=== PATIENT | female | born 1990 | race Caucasian/White ===

== ENCOUNTER 2016-11-22 14:56 | Emergency (ER) | payer OTHER ==
[2016-11-22 15:20] VITALS: BP 133/95; PULSE 84; RESP 18; TEMP 97.8
--- NOTE | 2016-11-22 15:31 | ED ---
Wound/Laceration HPI - General Chief Complaint: Wound/Laceration Stated Complaint: [facility] Time Seen by Provider: 11/22/16 15:13 Source: patient, RN notes reviewed Mode of arrival: ambulatory Limitations: no limitations - History of Present Illness Initial Comments: 26-year-old female presents emergency Department with a chief complaint of right hand injury. Patient was cleaning up a bloody area after a tooth extraction and cut her hand on piece of plastic. Patient states she is up-to- date on her tetanus as well as her hepatitis vaccinations. Patient denies any pain. Patient states she's early wash the wound after it happened.Patient denies any recent fever, chills, shortness of breath, chest pain, back pain, abdominal pain, nausea vomiting, numbness or tingling, dysuria or hematuria, constipation or diarrhea, headaches or visual changes, or any other current symptoms. - Related Data Allergies Allergy/AdvReac Type Severity Reaction Status Date / Time No Known Allergies Allergy Verified 11/22/16 15:17 Review of Systems ROS Statement: Those systems with pertinent positive or pertinent negative responses have been documented in the HPI. ROS Other: All systems not noted in ROS Statement are negative. Past Medical History Past Medical History: No Reported History History of Any Multi-Drug Resistant Organisms: None Reported Past Surgical History: Adenoidectomy, Tonsillectomy Past Psychological History: No Psychological Hx Reported Smoking Status: Never smoker Past Alcohol Use History: None Reported Past Drug Use History: None Reported General Exam - General Exam Comments Initial Comments: General: The patient is awake and alert, in no distress, and does not appear acutely ill. Neck: The neck is supple, there is no tenderness. Cardiovascular: There is a regular rate and rhythm. No murmur, rub or gallop is appreciated. Respiratory: Lungs are clear to auscultation, respirations are non-labored, breath sounds are equal. No wheezes, stridor, rales, or rhonchi. Musculoskeletal: Sensation intact with 2+ pulses throughout Patient does appear to have a small puncture wound to the base of the fourth and fifth digits. No drainage from the area. Full range of motion. Neurological: CN II-XII intact, There are no obvious motor or sensory deficits. Coordination appears grossly intact. Speech is normal. Skin: Skin is warm and dry and no rashes or lesions are noted. Psychiatric: Normal mood and affect. Limitations: no limitations Course Vital Signs 11/22/16 15:17 Temperature 97.8 F Pulse Rate 84 Respiratory 18 Rate Blood Pressure 133/95 O2 Sat by Pulse 99 Oximetry Medical Decision Making - Medical Decision Making 26-year-old female presents for right hand puncture wound. At this time patient does have the source and she will contact them and they will follow up here and/or another facility to have the sources foot were drawn. At this time we will not wait for the HIV results. We discussed needs follow-up on this. This time we discussed continued follow-up for additional blood work throughout the process. We discussed return parameters. We discussed all the patient's questions. She stated that she understood and is in agreement with plan. This time she'll be discharged home. Disposition Clinical Impression: Exposure to blood, Puncture wound of right hand Disposition: HOME SELF-CARE Condition: Stable Instructions: Needle Stick Injuries (ED) Additional Instructions: Please use medication as discussed. Please follow up with family doctor if symptoms have not improved over the next two days. Please return to the emergency room if your symptoms increase or worsen or for any other concerns. Referrals: Saúl Kohli III, MD [Primary Care Provider] - 1-2 days Time of Disposition: 15:30
[2016-11-22 17:14] LABS: Hepatitis C Virus IgG Index 0.02
[2016-11-22 17:33] LABS: Hepatitis B Surface Antibody POSITIVE (Negative); Hepatitis C Virus IgG Ab Negative (Negative)
[2016-11-23 07:38] LABS: HIV-1/HIV-2 Ab Screen NONREAC (NON REAC)
== END 2016-11-22 15:54 | disposition home or self-care (01) ==
LOC: EC 14:56 → MERGE 14:56 → EC 15:54
DX: S61.431A Puncture wound without foreign body of right hand, initial encounter (principal); W45.8XXA Other foreign body or object entering through skin, initial encounter
CPT/HCPCS: 36415; 86706; 86803; 87389; 99283

== ENCOUNTER 2021-09-08 14:40 | Inpatient (IN) | payer BC ==
[2021-09-08 15:22] LABS: Appearance,Urine Clear (Clear); Bacteria,Urine Occasional /hpf; Bilirubin,Urine Negative (Negative); Blood,Urine Moderate (Negative); Color,Urine Light Yellow; Glucose,Urine (UA) Negative (Negative); Ketones,Urine Negative (Negative); Leukocyte Esterase,Urine Negative (Negative); Nitrite,Urine Negative (Negative); PH, Urine 6.5 (5.0-8.0); Protein,Urine Negative (Negative); RBC,Urine <1 /hpf (0-5); Specific Gravity,Urine 1.006 (1.001-1.035); Squamous Epithelial Cell,Urine <1 /hpf (0-4); Urobilinogen,Urine <2.0 mg/dL (<2.0); WBC,Urine 1 /hpf (0-5)
[2021-09-08 15:28] LABS: Creatinine,Urine Random 49.8 mg/dL; Creatinine,Urine Random 50.7 mg/dL; Protein/Creatinine Ratio,Urine 0.321
[2021-09-08 15:37] LABS: Basophils % (A) 0 %; Eosinophils # (A) 0.1 k/uL (0-0.7); Eosinophils % (A) 1 %; HCT 39.5 % (34.0-46.0); HGB 13.8 gm/dL (11.4-16.0); Lymphocytes # (A) 2.3 k/uL (1.0-4.8); Lymphocytes % (A) 19 %; MCH 32.9 pg (25.0-35.0); MCHC 34.8 g/dL (31.0-37.0); MCV 94.6 fL (80.0-100.0); Mean Platelet Volume 7.5; Monocytes # (A) 0.6 k/uL (0-1.0); Monocytes % (A) 5 %; Neutrophils # (A) 8.9 k/uL (1.3-7.7); Neutrophils % (A) 73 %; Platelet Count 349 k/uL (150-450); RBC 4.18 m/uL (3.80-5.40); RDW 13.2 % (11.5-15.5); WBC 12.2 k/uL (3.8-10.6)
[2021-09-08 15:45] LABS: INR 0.9 (<1.2); Partial Thromboplastin Time 24.1 sec (22.0-30.0); Prothrombin Time 9.7 sec (9.0-12.0)
[2021-09-08 15:46] LABS: ALT 15 U/L (4-34); AST 28 U/L (14-36); African American GFR (CKD) >90 (>60 ml/min/1.73 sqM); Blood Urea Nitrogen 7 mg/dL (7-17); LDH 517 U/L (313-618); Non-African American GFR(CKD) >90 (>60 ml/min/1.73 sqM); Uric Acid 2.8 mg/dL (3.7-7.4)
[2021-09-08] MEDS ORDERED: LABETALOL 100 MG TAB PO STA (15:57)
--- NOTE | 2021-09-08 17:23 | P.HPOB ---
History of Present Illness H&P Date: 09/08/21 Chief Complaint: 38-3/7 weeks, -induced hypertension The patient is a 31-year-old 1 para 0 admitted at 38-3/7 weeks as established by last menstrual period and confirmed by 8 week ultrasound. She is admitted with elevated blood pressures both at home and in the office today. She denies any secondary symptoms but was followed blood pressures in the range of 150 over 100s. As a result, she was sent to the hospital for laboratory workup for preeclampsia which has been entirely negative. She does continue to have relatively labile blood pressures on the floor. Given her gestational age of 38-3/7 weeks with a favorable cervix, we have opted to admit her on for overnight observation and management of blood pressures using oral labetalol and begin the process of induction tomorrow morning. Her has otherwise been uncomplicated though she did have Covid in April and has had reassuring testing weekly since 32 weeks. She additionally is known to be group B strep positive. Obstetrical history: 1 para 0 with current statistics listed in history of present illness. EDC of 09/19/2021 was established by last menstrual period and confirmed by 8 week ultrasound. Laboratory workup demonstrates a blood type of A+ with a negative antibody screen. Rubella status is immune. The remainder of the laboratory workup was within normal limits. One hour Glucola was normal and group B strep status is positive. Gynecologic history: Unremarkable with no history of any infections to include STDs. Review of Systems Review of systems is confined to history of present illness. Past Medical History Past Medical History: No Reported History History of Any Multi-Drug Resistant Organisms: None Reported Past Surgical History: Adenoidectomy, Orthopedic Surgery, Tonsillectomy Additional Past Surgical History / Comment(s): eye surgery, lasic Past Anesthesia/Blood Transfusion Reactions: No Reported Reaction Past Psychological History: No Psychological Hx Reported Smoking Status: Never smoker Past Alcohol Use History: None Reported Past Drug Use History: None Reported - Past Family History Father Family Medical History: Cancer, Thyroid Disorder Additional Family Medical History / Comment(s): thyroid cancer, DVT's Medications and Allergies Home Medications Medication Instructions Recorded Confirmed Type Aspirin [Children's Aspirin] 81 mg PO DAILY 09/08/21 09/08/21 History Pnv No.95/Ferrous Fum/Folic AC 1 tab PO DAILY 09/08/21 09/08/21 History [ Multivitamin Tablet] Allergies Allergy/AdvReac Type Severity Reaction Status Date / Time No Known Allergies Allergy Verified 09/08/21 14:58 Exam Vital Signs Temp Pulse Resp BP Pulse Ox 09/08/21 16:19 97.9 F 103 H 18 134/96 97 09/08/21 15:44 97.9 F 103 H 17 134/96 Intake and Output 09/08/21 09/08/21 09/08/21 06:59 14:59 22:59 Other: Weight 94.801 kg 94.801 kg In general, this is a well-developed, well-nourished white female in no acute distress. Her heart has a regular rhythm and rate without murmur. Her lungs clear to auscultation bilaterally in all patel. Her abdomen is gravid, nondistended, has normal active bowel sounds, soft, nontender, and without any palpable masses aside from uterine fundus. Her extremities are without any cyanosis, clubbing, or significant edema and are nontender to palpation bilaterally. Digital cervical examination demonstrated surgery approximate 3 cm dilated, 60% effaced, the vertex in presentation at -2 station. Results Result Diagrams: 09/08/21 15:34 09/08/21 15:34 Abnormal Lab Results - Last 24 Hours (Table) 09/08/21 09/08/21 09/08/21 Range/Units 15:03 15:03 15:34 WBC (3.8-10.6) k/uL Neutrophils # (1.3-7.7) k/uL Creatinine 0.40 L (0.52-1.04) mg/dL Uric Acid 2.8 L (3.7-7.4) mg/dL Urine Blood Moderate H (Negative) Urine Bacteria Occasional H (None) /hpf U Random Total Protein 15 H (<12) mg/dL 09/08/21 Range/Units 15:34 WBC 12.2 H (3.8-10.6) k/uL Neutrophils # 8.9 H (1.3-7.7) k/uL Creatinine (0.52-1.04) mg/dL Uric Acid (3.7-7.4) mg/dL Urine Blood (Negative) Urine Bacteria (None) /hpf U Random Total Protein (<12) mg/dL Assessment and Plan (1) Term Current Visit: Yes Status: Acute Code(s): Z34.90 - ENCNTR FOR SUPRVSN OF NORMAL , UNSP, UNSP TRIMESTER SNOMED Code(s): 53806255 (2) induced hypertension Current Visit: Yes Status: Acute Code(s): O13.9 - GESTATIONAL HTN W/O SIGNIFICANT PROTEINURIA, UNSP TRIMESTER SNOMED Code(s): 80734421 Plan: The patient has been admitted for overnight observation and management of blood pressures using labetalol 100 mg. She received a dose approximately 1 hour ago and will be followed closely with blood pressures for need for another dose tonight before she goes to bed. The intention would be to proceed with Pitocin induction starting tomorrow morning at 6 AM and 2 shortly after follow with artificial rupture of membranes. She will obviously have close maternal and surveillance and expectant management will be practiced. She is a good candidate for either IV or epidural analgesia. Laboratory workup for preeclampsia has been entirely negative.
[2021-09-08] MEDS ORDERED: LABETALOL 100 MG TAB PO ONE (20:33)
[2021-09-09] MEDS ORDERED: PENICILLIN G POTASSIUM 5,000,000 UNIT in DEXTROSE 5% IN WATER 100 ML IVPB STA ×2 (04:42)
[2021-09-09] MEDS ORDERED: LIDOCAINE 0.5% (PF) 5 MG/ML (50 ML SDV) SQ PRN (04:42)
[2021-09-09] MEDS ORDERED: METHYLERGONOVINE 0.2 MG/ML 1 ML AMP IM PRN (04:42)
[2021-09-09] MEDS ORDERED: OXYTOCIN 10 UNIT/ML 1 ML VIAL IM PRN (04:42)
[2021-09-09] MEDS ORDERED: CARBOPROST TROMETHAMINE 250 MCG/ML 1 ML AMP IM PRN (04:42)
[2021-09-09] MEDS ORDERED: TERBUTALINE 1 MG/ML VIAL SQ PRN (04:42)
[2021-09-09] MEDS ORDERED: OXYTOCIN 30 UNITS/500 ML NS 30 UNIT in SALINE 1 500ML.BAG IV SCH ×2 (04:45→12:15)
[2021-09-09] MEDS: LACTATED RINGERS 1,000 ML IV SCH ×2 (05:40→12:49)
[2021-09-09] MEDS ORDERED: LABETALOL 100 MG TAB PO ONE (08:15)
[2021-09-09] MEDS ORDERED: BUTORPHANOL 1 MG/ML 1 ML VIAL IV PRN (08:36)
--- NOTE | 2021-09-09 08:39 | P.PN ---
Subjective Progress Note Date: 09/09/21 Principal diagnosis: 38-4/7 weeks, -induced hypertension, induction The patient had blood pressures in the 130s over 90 range overnight but, this morning has had increased blood pressures. She denies any symptoms to include headaches, scotomata, or any other concerning features for preeclampsia was severe features. Objective - Vital Signs Vital signs: Vital Signs Temp 96.5 F L 09/09/21 04:00 Pulse 89 09/09/21 04:00 Resp 16 09/09/21 04:00 BP 136/89 09/09/21 04:00 Pulse Ox 97 09/09/21 04:00 Intake & Output 09/08/21 09/09/21 09/09/21 18:59 06:59 18:59 Weight 94.801 kg Other: # Voids 1 - Exam In general, this is a well-developed, well-nourished white female in no acute distress. Exam this morning is confined to digital cervical examination which demonstrates her cervix to be approximately 3 cm dilated, 60% effaced, with the vertex in presentation at -2 station. Artificial rupture of membranes is carried out demonstrating clear fluid. - Labs CBC & Chem 7: 09/08/21 15:34 09/08/21 15:34 Labs: Abnormal Lab Results - Last 24 Hours (Table) 09/08/21 09/08/21 09/08/21 Range/Units 15:03 15:03 15:34 WBC (3.8-10.6) k/uL Neutrophils # (1.3-7.7) k/uL Creatinine 0.40 L (0.52-1.04) mg/dL Uric Acid 2.8 L (3.7-7.4) mg/dL Urine Blood Moderate H (Negative) Urine Bacteria Occasional H (None) /hpf U Random Total Protein 15 H (<12) mg/dL 09/08/21 Range/Units 15:34 WBC 12.2 H (3.8-10.6) k/uL Neutrophils # 8.9 H (1.3-7.7) k/uL Creatinine (0.52-1.04) mg/dL Uric Acid (3.7-7.4) mg/dL Urine Blood (Negative) Urine Bacteria (None) /hpf U Random Total Protein (<12) mg/dL Assessment and Plan (1) Term Current Visit: Yes Status: Acute Code(s): Z34.90 - ENCNTR FOR SUPRVSN OF NORMAL , UNSP, UNSP TRIMESTER SNOMED Code(s): 39491708 (2) induced hypertension Current Visit: Yes Status: Acute Code(s): O13.9 - GESTATIONAL HTN W/O SIGNIFICANT PROTEINURIA, UNSP TRIMESTER SNOMED Code(s): 73802019 Plan: Pitocin has been started and she has undergone artificial rupture of membranes. She will have close maternal and surveillance and expectant management will be practiced. She did require another dose of oral labetalol this morning, 100 mg. We will keep a close watch on ongoing blood pressures and treat as needed, more likely with IV labetalol should it become necessary during labor process. She is a good candidate for either IV or epidural analgesia and I've discussed with her that epidural analgesia may help to improve her blood pressure profile as well.
[2021-09-09] MEDS ORDERED: ROPIVACAINE 5MG/ML 20ML VIAL ONE (10:11)
[2021-09-09] MEDS ORDERED: fentaNYL (PF) 50 MCG/ML 5 ML AMP ONE (10:11)
[2021-09-09] MEDS ORDERED: SODIUM CHLORIDE 0.9% 100 ML BAG ONE (10:11)
[2021-09-09] MEDS: PENICILLIN G POTASSIUM 2,500,000 UNIT in DEXTROSE 5% IN WATER 100 ML IVPB SCH ×4 (10:49→12:36)
[2021-09-09] MEDS ORDERED: SIMETHICONE 80 MG CHEWABLE PO PRN (12:01)
[2021-09-09] MEDS ORDERED: ACETAMINOPHEN TAB 325 MG TAB PO PRN (12:01)
[2021-09-09] MEDS ORDERED: HYDROcodone/APAP 5-325MG 1 EACH TAB PO PRN (12:01)
[2021-09-09] MEDS ORDERED: BENZOCAINE/MENTHOL SPRAY 1 GM/SPRAY AEROSOL TOPICAL PRN (12:01)
[2021-09-09] MEDS ORDERED: diphenhydrAMINE 50 MG/ML 1 ML VIAL IVP PRN ×2 (12:01)
[2021-09-09] MEDS ORDERED: HYDROCORTISONE 2.5% RECTAL CREAM 30 GM TUBE RECTAL PRN (12:01)
[2021-09-09] MEDS ORDERED: diphenhydrAMINE 25 MG CAP PO PRN (12:01)
[2021-09-09] MEDS ORDERED: diphenhydrAMINE 50 MG CAP PO PRN (12:01)
[2021-09-09] MEDS ORDERED: LANOLIN CREAM 5 GM TUBE TOPICAL PRN (12:01)
[2021-09-09] MEDS ORDERED: HYDROcodone/APAP 7.5-325MG 1 EACH TAB PO PRN (12:01)
[2021-09-09] MEDS ORDERED: ZOLPIDEM 5 MG TAB PO PRN (12:01)
[2021-09-09] MEDS ORDERED: IBUPROFEN 600 MG TAB PO PRN (12:01)
--- NOTE | 2021-09-09 12:05 | P.PROBDLV ---
Vaginal Delivery Note - . Vaginal Delivery Note: The patient is a 31-year-old 1 para 0 admitted at 38-3/7 weeks for workup for preeclampsia having had significant elevated blood pressures in the office and at home. She otherwise was asymptomatic. Laboratory workup was entirely negative but her blood pressures remained fairly significantly labile. She was treated with labetalol orally on 3 separate occasions from starting yesterday afternoon and then last evening and again this morning. The plan had been made for her to have induction of labor this morning for -induced hypertension. Her was otherwise uncomplicated and group B strep status was positive. On labor and delivery, a category 1 heart rate tracing was noted. She had Pitocin augmentation started and underwent artificial rupture of membranes for clear fluid. She made fairly quick progress to the active phase of labor which time an epidural catheter was placed for analgesia. She then progressed very quickly from 4 cm to complete and then pushed for approximately 30 minutes to a normal spontaneous vaginal delivery of a viable 6 lbs. 10 oz. baby girl with Apgars of 8 at 1 minute and 9 at 5 minutes delivered in the right occiput anterior position. There was a loose nuchal cord 1 which was reduced following delivery of the . The placenta was delivered spontaneously, intact, and grossly normal with a grossly normal three- vessel cord inserted to properly 4 cm from the margin of the placental disc. A second-degree midline episiotomy had been cut for delivery secondary to the perineum being very tight and fear for an anterior laceration. It was repaired in standard fashion using 3-0 chromic catgut without difficulty. Estimated blood loss for the case was approximate 300 mL. There were no complications. All sponge, instrument, and needle counts were correct. Both mother and are resting comfortably in recovery. Careful observation for ongoing blood pressure concerns will be undertaken as well.
[2021-09-09] MEDS: LABETALOL 100 MG TAB PO SCH ×2 (14:43→21:56)
[2021-09-09] MEDS: SENNOSIDES-DOCUSATE SODIUM 1 EACH TAB PO SCH (21:56)
--- NOTE | 2021-09-10 06:32 | P.DS ---
Providers Date of admission: 09/08/21 16:00 Expected date of discharge: 09/10/21 Attending physician: Demarcus Gaines Primary care physician: Stated None - Discharge Diagnosis(es) (1) Term Current Visit: Yes Status: Acute (2) induced hypertension Current Visit: Yes Status: Acute (3) Normal spontaneous vaginal delivery Current Visit: Yes Status: Acute Hospital Course: The patient is a 31-year-old 1 para 0 admitted at 38-3/7 weeks secondary to significantly elevated blood pressures both at home and in the office on the day of presentation. She will presented to labor and delivery at which time she had laboratories drawn for preeclampsia which were entirely negative. As it was late in the afternoon, she was admitted for overnight observation and induction the following morning. She did require intervention with labetalol 100 mg in the afternoon, evening, and the following morning at the onset of the induction. Her blood pressures did remain relatively labile throughout that process as well as during labor. The morning of her induction, she had Pitocin started followed by artificial rupture of membranes for clear fluid. She made progress to the active phase of labor and then had an epidural catheter placed for analgesia. She then progressed very quickly to complete after which time she pushed fairly quickly to a normal spontaneous vaginal delivery of a viable 6 lbs. 10 oz. baby girl with Apgars of 8 at 1 minute and 9 at 5 minutes. Her course was entirely unremarkable though she continued to have some mild blood pressure lability and was again started on labetalol 100 mg 3 times a day to be carried out through the remainder of her phase. Otherwise, her vital signs are stable and she was afebrile throughout. She was deemed stable for discharge on day 1 was discharged home to follow-up in the office in 6 weeks' time routinely. Discharge instructions included calling for any significantly increased bleeding or foul-smelling lochia, significantly increased fever abdominal pain, perineal complaints, breast complaints, or anything else that concerned her. She was additionally instructed to have nothing in the vagina for at least 6 weeks time to include intercourse. She understood those instructions and was lastly instructed to check blood pressures at home. Should she find normal blood pressures regularly, she can decrease her labetalol to twice daily and should the remain normal thereafter, she can discontinue the labetalol. She understood all of her instructions as noted above and agrees follow up as noted above. Discharge medications included [id number] analgesic pain medications as well as a prescription for labetalol 100 mg 3 times a day, #90 dispensed with 1 refill. Maternal blood type is A+ and rubella status is immune. Procedures: #1. Serial blood pressure monitoring #2. Attention induction #3. Artificial rupture of membranes #4. Epidural analgesia #5. Normal spontaneous vaginal delivery #. Second-degree midline episiotomy and repair Patient Condition at Discharge: Stable Plan - Discharge Summary New Discharge Prescriptions: No Action Pnv No.95/Ferrous Fum/Folic AC [ Multivitamin Tablet] 1 tab PO DAILY Aspirin [Children's Aspirin] 81 mg PO DAILY Discharge Medication List Aspirin [Children's Aspirin] 81 mg PO DAILY 09/08/21 [History] Pnv No.95/Ferrous Fum/Folic AC [ Multivitamin Tablet] 1 tab PO DAILY 09/08/21 [History] Follow up Appointment(s)/Referral(s): Demarcus Gaines MD [STAFF PHYSICIAN] - 6 Weeks Discharge Disposition: HOME SELF-CARE
[2021-09-10] MEDS: SENNOSIDES-DOCUSATE SODIUM 1 EACH TAB PO SCH ×2 (08:29→22:00)
[2021-09-10] MEDS: LABETALOL 100 MG TAB PO SCH ×3 (08:29→22:00)
[2021-09-10 08:52] LABS: Basophils % (A) 0 %; Eosinophils # (A) 0.1 k/uL (0-0.7); Eosinophils % (A) 0 %; HCT 36.8 % (34.0-46.0); HGB 12.1 gm/dL (11.4-16.0); Lymphocytes # (A) 2.2 k/uL (1.0-4.8); Lymphocytes % (A) 17 %; MCH 31.8 pg (25.0-35.0); MCHC 32.9 g/dL (31.0-37.0); MCV 96.8 fL (80.0-100.0); Mean Platelet Volume 7.6; Monocytes # (A) 0.6 k/uL (0-1.0); Monocytes % (A) 5 %; Neutrophils # (A) 10.3 k/uL (1.3-7.7); Neutrophils % (A) 77 %; Platelet Count 274 k/uL (150-450); RDW 12.7 % (11.5-15.5); WBC 13.5 k/uL (3.8-10.6)
[2021-09-11] MEDS: SENNOSIDES-DOCUSATE SODIUM 1 EACH TAB PO SCH (07:46)
[2021-09-11 09:54] VITALS: PULSE 83; RESP 18; TEMP 98.2
[2021-09-11 09:59] VITALS: BP 150/91
== END 2021-09-11 08:56 | disposition home or self-care (01) | DRG 807 ==
LOC: FBPOP 14:40 → 4FBP 16:00
PROVIDERS: ADMIT Obstetrics & Gynecology; ATTEND Obstetrics & Gynecology
PROC: 10907ZC Drainage of Amniotic Fluid, Therapeutic from Products of Conception, Via Natural or Artificial Opening (ICD-10-PCS; principal; 2021-09-08)
PROC: 3E033VJ Introduction of Other Hormone into Peripheral Vein, Percutaneous Approach (ICD-10-PCS; principal; 2021-09-08)
PROC: 0KQM0ZZ Repair Perineum Muscle, Open Approach (ICD-10-PCS; principal; 2021-09-08)
PROC: 10E0XZZ Delivery of Products of Conception, External Approach (ICD-10-PCS; principal; 2021-09-08)
DX: O13.4 Gestational [pregnancy-induced] hypertension without significant proteinuria, complicating childbirth (principal); Z37.0 Single live birth; O70.1 Second degree perineal laceration during delivery; O69.81X0 Labor and delivery complicated by cord around neck, without compression, not applicable or unspecified; O99.824 Streptococcus B carrier state complicating childbirth; Z3A.38 38 weeks gestation of pregnancy; Z79.82 Long term (current) use of aspirin
CPT/HCPCS: 59025; 81001; 82565; 82570; 83615; 84156; 84450; 84460; 84520; 84550; 85025; 85384; 85610; 85730; 86850; 86900; 86901

== ENCOUNTER 2024-01-07 00:45 | Inpatient (IN) | payer BC ==
[2024-01-07] MEDS ORDERED: OXYTOCIN 10 UNIT/ML 1 ML VIAL IM PRN (01:07)
[2024-01-07] MEDS ORDERED: METHYLERGONOVINE 0.2 MG/ML 1 ML AMP IM PRN (01:07)
[2024-01-07] MEDS ORDERED: CARBOPROST TROMETHAMINE 250 MCG/ML 1 ML AMP IM PRN (01:07)
[2024-01-07] MEDS ORDERED: TRANEXAMIC 1,000 MG/100ML-NACL 1,000 MG in EMPTY BAG 1 BAG IV PRN (01:07)
[2024-01-07] MEDS ORDERED: LIDOCAINE 0.5% (PF) 5 MG/ML (50 ML SDV) SQ PRN (01:07)
[2024-01-07] MEDS ORDERED: TERBUTALINE 1 MG/ML VIAL SQ PRN (01:07)
[2024-01-07] MEDS ORDERED: miSOPROStoL 200 MCG TAB PO PRN (01:07)
[2024-01-07] MEDS: LACTATED RINGERS 1,000 ML IV SCH (01:10)
[2024-01-07 01:30] LABS: Basophils # (A) 0.1 k/uL (0-0.2); Basophils % (A) 0 %; Eosinophils # (A) 0.1 k/uL (0-0.7); Eosinophils % (A) 1 %; HCT 39.1 % (34.0-46.0); HGB 12.9 gm/dL (11.4-16.0); Lymphocytes % (A) 23 %; MCH 29.9 pg (25.0-35.0); MCHC 32.9 g/dL (31.0-37.0); MCV 90.9 fL (80.0-100.0); Mean Platelet Volume 7.6; Monocytes # (A) 0.7 k/uL (0-1.0); Monocytes % (A) 6 %; Neutrophils % (A) 68 %; Platelet Count 355 k/uL (150-450); WBC 13.1 k/uL (3.8-10.6)
[2024-01-07] MEDS: OXYTOCIN 30 UNITS/500 ML NS 30 UNIT in SALINE 1 500ML.BAG IV SCH (01:40)
[2024-01-07] MEDS ORDERED: diphenhydrAMINE 50 MG CAP PO PRN (02:00)
[2024-01-07] MEDS ORDERED: LANOLIN CREAM 1 GM TUBE TOPICAL PRN (02:00)
[2024-01-07] MEDS ORDERED: BENZOCAINE/MENTHOL SPRAY 1 GM/SPRAY AEROSOL TOPICAL PRN (02:00)
[2024-01-07] MEDS ORDERED: HYDROCORTISONE 2.5% RECTAL CREAM 30 GM TUBE RECTAL PRN (02:00)
[2024-01-07] MEDS ORDERED: diphenhydrAMINE 50 MG/ML 1 ML VIAL IVP PRN ×2 (02:00)
[2024-01-07] MEDS ORDERED: diphenhydrAMINE 25 MG CAP PO PRN (02:00)
[2024-01-07] MEDS ORDERED: ZOLPIDEM 5 MG TAB PO PRN (02:00)
[2024-01-07] MEDS ORDERED: SIMETHICONE 80 MG CHEWABLE PO PRN (02:00)
[2024-01-07] MEDS: IBUPROFEN 600 MG TAB PO SCH (02:34)
--- NOTE | 2024-01-07 03:17 | P.PROBDLV ---
Vaginal Delivery Note - . Vaginal Delivery Note: 33-year-old G2, P1 at 38+ weeks of presents in active labor. Patient was admitted to labor and delivery made quick progress toward complete dilation. Once patient was noted to be completely dilated she began pushing. Patient had a normal spontaneous vaginal delivery of a viable female at 139, weight of 8 pounds 0 ounces. After 2-minute delay the umbilical cord was doubly clamped and cut, spontaneous cry was noted at . Placenta was delivered spontaneously intact with a three-vessel cord being noted. Inspection the patient's vaginal vault secondary midline laceration was appreciated, this was injected with lidocaine and repaired in the usual fashion with 3-0 Rapide. Uterus is noted to be firm below the umbilicus, estimated blood loss 100 cc. Patient and tolerated delivery well and are resting comfortably. All counts found be correct x 2 at the end of the delivery.
--- NOTE | 2024-01-07 03:21 | P.HPOB ---
History of Present Illness H&P Date: 01/07/24 Chief Complaint: Term , active labor This is a 33-year-old G2, P1 at 38 6/7 weeks that presents in active labor. Patient had been receiving routine care was complicated by marginal cord insertion of the placenta. Known blood type of A positive, rubella status immune, RPR is nonreactive, hepatitis B surface engine negative, HIV negative, group beta strep culture was positive. Prior term spontaneous vaginal delivery 6+ pounds. Past Medical History Past Medical History: No Reported History History of Any Multi-Drug Resistant Organisms: None Reported Past Surgical History: Adenoidectomy, Orthopedic Surgery, Tonsillectomy Additional Past Surgical History / Comment(s): eye surgery, lasic Past Anesthesia/Blood Transfusion Reactions: No Reported Reaction Past Psychological History: No Psychological Hx Reported Smoking Status: Never smoker Past Alcohol Use History: None Reported Past Drug Use History: None Reported - Past Family History Father Family Medical History: Cancer, Thyroid Disorder Additional Family Medical History / Comment(s): thyroid cancer, DVT's Medications and Allergies Home Medications Medication Instructions Recorded Confirmed Type Aspirin [Children's Aspirin] 81 mg PO DAILY 09/08/21 09/08/21 History Pnv No.95/Ferrous Fum/Folic AC 1 tab PO DAILY 09/08/21 09/08/21 History [ Multivitamin Tablet] Allergies Allergy/AdvReac Type Severity Reaction Status Date / Time No Known Allergies Allergy Verified 09/08/21 14:58 Exam Osteopathic Statement: *. No significant issues noted on an osteopathic structural exam other than those noted in the History and Physical/Consult. Intake and Output 01/06/24 01/06/24 01/07/24 14:59 22:59 06:59 Other: Weight 96.615 kg Results Result Diagrams: 01/07/24 01:13 Abnormal Lab Results - Last 24 Hours (Table) 01/07/24 Range/Units 01:13 WBC 13.1 H (3.8-10.6) k/uL Neutrophils # 9.0 H (1.3-7.7) k/uL Assessment and Plan (1) Group B streptococcal infection in Current Visit: No Status: Acute Code(s): O98.819 - OTH MATERNAL INFEC/PARASTC DISEASES COMP PREG, UNSP TRI; B95.1 - STREPTOCOCCUS, GROUP B, CAUSING DISEASES CLASSD ELSWHR SNOMED Code(s): 495568919 (2) Normal spontaneous vaginal delivery Current Visit: No Status: Acute Code(s): O80 - ENCOUNTER FOR FULL-TERM UNCOMPLICATED DELIVERY SNOMED Code(s): 15155183 (3) Term Current Visit: No Status: Acute Code(s): Z34.90 - ENCNTR FOR SUPRVSN OF NORMAL , UNSP, UNSP TRIMESTER SNOMED Code(s): 82564420 Plan: 33-year-old 2 para 1 at 38-6/7 weeks presents with complaints of regular painful contractions. Patient is known to be 5 to 6 cm a bulging bag of water. Anticipate spontaneous vaginal delivery.
[2024-01-07] MEDS ORDERED: LABETALOL 5 MG/ML VIAL MDV IVP PRN (04:41)
[2024-01-07 04:53] LABS: ALT 17 U/L (4-34); AST 42 U/L (14-36); African American GFR (CKD) >90 (>60 ml/min/1.73 sqM); Blood Urea Nitrogen 11 mg/dL (7-17); Non-African American GFR(CKD) >90 (>60 ml/min/1.73 sqM); Uric Acid 2.8 mg/dL (3.7-7.4)
[2024-01-07] MEDS: LABETALOL 5 MG/ML VIAL MDV IVP PRN ×3 (04:58→05:30)
[2024-01-07] MEDS: hydrALAZINE HCL 20 MG/ML 1 ML VIAL IVP PRN (05:44)
[2024-01-07 05:50] LABS: LDH 343 U/L (120-246)
[2024-01-07] MEDS: LABETALOL 200 MG TAB PO STA (06:58)
[2024-01-07] MEDS: SENNOSIDES-DOCUSATE SODIUM 1 EACH TAB PO SCH (08:13)
[2024-01-07] MEDS: PRENATAL VIT-IRON-FOLIC ACID 1 EACH TABLET PO SCH (08:14)
--- NOTE | 2024-01-07 13:53 | P.PNOBGVD ---
Subjective - Subjective Principal diagnosis: day 0 Interval history: Patient is overall doing well this morning. Lochia is noted to be minimal to moderate, blood pressures are well-controlled with 1 dose of oral labetalol given after labetalol pathway. Patient states she is feeling well. She is ambulated back and forth to the nursery to see her who is receiving IV antibiotics for GBS exposure. Patient reports: Reports appetite normal, Reports voiding normally, Reports pain well controlled, Reports ambulating normally Yeso: doing well (In special care nursery) Objective - Latest Vital Signs Latest vital signs: Vital Signs Temp Pulse Resp BP Pulse Ox 01/07/24 12:31 98.0 F 85 16 134/88 01/07/24 10:00 117/71 01/07/24 08:00 98.4 F 75 16 147/88 01/07/24 03:55 71 173/97 01/07/24 03:40 71 15 182/99 01/07/24 03:25 79 16 145/83 01/07/24 03:10 79 15 157/85 01/07/24 02:55 97.8 F 72 15 99 01/07/24 02:40 86 16 164/96 01/07/24 02:25 98.8 F 71 15 179/103 01/07/24 02:10 77 15 163/79 01/07/24 01:55 81 16 182/105 01/07/24 01:04 98.1 F 87 163/104 97 Intake and Output 01/06/24 01/07/24 01/07/24 22:59 06:59 14:59 Output Total 525 Balance -525 Output: Estimated Blood Loss 525 Other: # Voids 1 Weight 96.615 kg - Exam Extremities: Present: normal, edema Abdomen: Present: normal appearance, soft Uterus: Present: normal, firm - Labs Labs: Abnormal Lab Results - Last 24 Hours (Table) 01/07/24 01/07/24 Range/Units 01:13 01:13 WBC 13.1 H (3.8-10.6) k/uL Neutrophils # 9.0 H (1.3-7.7) k/uL Creatinine 0.42 L (0.52-1.04) mg/dL Uric Acid 2.8 L (3.7-7.4) mg/dL AST 42 H (14-36) U/L Lactate Dehydrogenase 343 H (120-246) U/L Assessment and Plan (1) Group B streptococcal infection in Current Visit: No Status: Acute Code(s): O98.819 - OTH MATERNAL INFEC/PARASTC DISEASES COMP PREG, UNSP TRI; B95.1 - STREPTOCOCCUS, GROUP B, CAUSING DISEASES CLASSD ELSWHR SNOMED Code(s): 832970125 (2) Normal spontaneous vaginal delivery Current Visit: No Status: Acute Code(s): O80 - ENCOUNTER FOR FULL-TERM UNCOMPLICATED DELIVERY SNOMED Code(s): 03291089 (3) Term Current Visit: No Status: Acute Code(s): Z34.90 - ENCNTR FOR SUPRVSN OF NORMAL , UNSP, UNSP TRIMESTER SNOMED Code(s): 49658964 (4) Obstetrical laceration, second degree Current Visit: Yes Status: Acute Code(s): O70.1 - SECOND DEGREE PERINEAL LACERATION DURING DELIVERY SNOMED Code(s): 0352389 Plan: 33-year-old G2 now P2 status postnormal spontaneous vaginal delivery early this morning. Patient had noted elevated blood pressures near the end of labor and continuing into the period. She did receive IV labetalol followed by oral labetalol 200 mg. Blood pressures have been well-controlled 1 teens to 130s over 80s. Patient states she feels well and denies signs or symptoms of preeclampsia. Will monitor blood pressures and as needed labetalol is ordered
[2024-01-07] MEDS: LABETALOL 200 MG TAB PO SCH (20:39)
[2024-01-08] MEDS: AMPICILLIN 1,000 MG in SODIUM CHLORIDE 0.9% 50 ML IVPB SCH (06:37)
[2024-01-08] MEDS: AMPICILLIN 2,000 MG in SODIUM CHLORIDE 0.9% 100 ML IVPB ONE (06:37)
[2024-01-08 08:00] LABS: Basophils % (A) 0 %; Eosinophils # (A) 0.1 k/uL (0-0.7); Eosinophils % (A) 1 %; HGB 11.6 gm/dL (11.4-16.0); Lymphocytes # (A) 3.1 k/uL (1.0-4.8); Lymphocytes % (A) 22 %; MCHC 32.3 g/dL (31.0-37.0); MCV 92.8 fL (80.0-100.0); Mean Platelet Volume 7.8; Monocytes # (A) 0.8 k/uL (0-1.0); Monocytes % (A) 6 %; Neutrophils # (A) 9.5 k/uL (1.3-7.7); Neutrophils % (A) 69 %; Platelet Count 334 k/uL (150-450); RBC 3.88 m/uL (3.80-5.40); RDW 13.2 % (11.5-15.5); WBC 13.8 k/uL (3.8-10.6)
[2024-01-08 08:09] LABS: ALT 15 U/L (4-34); AST 29 U/L (14-36); African American GFR (CKD) >90 (>60 ml/min/1.73 sqM); Blood Urea Nitrogen 5 mg/dL (7-17); LDH 259 U/L (120-246); Non-African American GFR(CKD) >90 (>60 ml/min/1.73 sqM)
--- NOTE | 2024-01-08 09:17 | P.PNOBGVD ---
Subjective - Subjective Principal diagnosis: day #1 Interval history: Patient is doing well . Blood pressures have been 130s to 150s over 80s. She is feeling well and denies signs or symptoms of preeclampsia. Okay is noted to be minimal to moderate. Pain is well-controlled. Patient reports: Reports appetite normal, Reports voiding normally, Reports pain well controlled, Reports ambulating normally Pillager: doing well ([facility] care nursery) Objective - Latest Vital Signs Latest vital signs: Vital Signs Temp Pulse Resp BP Pulse Ox 01/08/24 08:00 97.4 F L 86 18 155/88 97 01/08/24 04:00 97.4 F L 75 16 136/90 98 01/08/24 00:00 98.3 F 78 15 123/86 01/07/24 20:44 78 15 01/07/24 20:00 97.9 F 78 15 155/92 99 01/07/24 16:00 98.2 F 85 16 126/84 01/07/24 12:31 98.0 F 85 16 134/88 01/07/24 10:00 117/71 Intake and Output 01/07/24 01/08/24 01/08/24 22:59 06:59 14:59 Intake Total 960 Balance 960 Intake: Oral 960 Other: # Voids 2 2 2 - Exam Extremities: Present: normal, edema Abdomen: Present: normal appearance, soft Uterus: Present: normal, firm - Labs Labs: Abnormal Lab Results - Last 24 Hours (Table) 01/08/24 01/08/24 Range/Units 07:30 07:30 WBC 13.8 H (3.8-10.6) k/uL Neutrophils # 9.5 H (1.3-7.7) k/uL BUN 5 L (7-17) mg/dL Creatinine 0.50 L (0.52-1.04) mg/dL Lactate Dehydrogenase 259 H (120-246) U/L Assessment and Plan (1) Group B streptococcal infection in Current Visit: No Status: Acute Code(s): O98.819 - OTH MATERNAL INFEC/PARASTC DISEASES COMP PREG, UNSP TRI; B95.1 - STREPTOCOCCUS, GROUP B, CAUSING DISEASES [facility] SNOMED Code(s): 232778841 (2) Normal spontaneous vaginal delivery Current Visit: No Status: Acute Code(s): O80 - ENCOUNTER FOR FULL-TERM UNCOMPLICATED DELIVERY SNOMED Code(s): 38905862 (3) Term Current Visit: No Status: Acute Code(s): Z34.90 - ENCNTR FOR SUPRVSN OF NORMAL , UNSP, UNSP TRIMESTER SNOMED Code(s): 72581024 (4) Obstetrical laceration, second degree Current Visit: Yes Status: Acute Code(s): O70.1 - SECOND DEGREE PERINEAL LACERATION DURING DELIVERY SNOMED Code(s): 7240500 Plan: 33-year-old G2 now P2 status postnormal spontaneous vaginal delivery. hypertension was diagnosed and patient was begun on labetalol. Patient's blood pressures have been moderately well-controlled 1 30-1 50s over high 80s. Patient denies signs or symptoms of preeclampsia will continue routine care. does remain in the nursery for antibiotics.
[2024-01-08 10:02] LABS: Uric Acid 2.9 mg/dL (3.7-7.4)
[2024-01-08] MEDS: LABETALOL 100 MG TAB PO SCH (15:22)
[2024-01-08] MEDS: ACETAMINOPHEN TAB 325 MG TAB PO PRN (19:36)
[2024-01-08 20:36] VITALS: RESP 16
--- NOTE | 2024-01-09 11:09 | P.PNOBGVD ---
Subjective - Subjective Principal diagnosis: day #2 Interval history: Overall patient is feeling well. Blood pressures remain 130s to 150s over 80s to 90s. Patient is receiving labetalol 300 mg twice daily. Infant remains in the nursery awaiting blood culture given GBS positive status untreated during labor. Patient had a quick labor therefore did not receive antibiotics. Lochia is noted to be minimal to moderate. She is breast-feeding. She states her pain is well-controlled. Patient reports: Reports appetite normal, Reports voiding normally, Reports pain well controlled, Reports ambulating normally Industry: doing well (in scn), nursing well Objective - Latest Vital Signs Latest vital signs: Vital Signs Temp Pulse Resp BP Pulse Ox 01/09/24 08:00 97.9 F 77 16 156/92 100 01/09/24 04:00 97.9 F 81 16 130/80 97 01/08/24 23:55 98.2 F 89 16 121/81 97 01/08/24 20:04 98.1 F 83 16 137/86 99 01/08/24 17:00 97.7 F 98 18 143/89 97 01/08/24 14:38 85 18 150/93 98 Intake and Output 01/08/24 01/09/24 01/09/24 22:59 06:59 14:59 Intake Total 480 Balance 480 Intake: Oral 480 Other: # Voids 2 1 1 # Bowel Movements 1 - Exam Extremities: Present: edema Abdomen: Present: normal appearance, soft Uterus: Present: normal, firm Assessment and Plan (1) Group B streptococcal infection in Current Visit: No Status: Acute Code(s): O98.819 - OTH MATERNAL INFEC/PARASTC DISEASES COMP PREG, UNSP TRI; B95.1 - STREPTOCOCCUS, GROUP B, CAUSING DISEASES CLASSD [facility] SNOMED Code(s): 218154060 (2) Normal spontaneous vaginal delivery Current Visit: No Status: Acute Code(s): O80 - ENCOUNTER FOR FULL-TERM UNCOMPLICATED DELIVERY SNOMED Code(s): 28117934 (3) Term Current Visit: No Status: Acute Code(s): Z34.90 - ENCNTR FOR SUPRVSN OF NORMAL , UNSP, UNSP TRIMESTER SNOMED Code(s): 26634471 (4) Obstetrical laceration, second degree Current Visit: Yes Status: Acute Code(s): O70.1 - SECOND DEGREE PERINEAL LACERATION DURING DELIVERY SNOMED Code(s): 3951466 Plan: Patient is doing well . Will continue to monitor blood pressures closely and adjust labetalol dose as needed.
[2024-01-09 13:04] VITALS: PULSE 72; TEMP 98.1
[2024-01-09 16:40] VITALS: BP 130/82
== END 2024-01-09 15:50 | disposition home or self-care (01) | DRG 807 ==
LOC: FBPOP 00:45 → 4FBP 01:01
PROVIDERS: ADMIT Obstetrics & Gynecology Obstetrics; ATTEND Obstetrics & Gynecology
PROC: 0KQM0ZZ Repair Perineum Muscle, Open Approach (ICD-10-PCS; principal; 2024-01-07)
PROC: 10E0XZZ Delivery of Products of Conception, External Approach (ICD-10-PCS; principal; 2024-01-07)
DX: O99.824 Streptococcus B carrier state complicating childbirth (principal); O43.193 Other malformation of placenta, third trimester; O70.1 Second degree perineal laceration during delivery; O16.5 Unspecified maternal hypertension, complicating the puerperium; Z79.82 Long term (current) use of aspirin; Z28.310 Unvaccinated for COVID-19; Z3A.38 38 weeks gestation of pregnancy; Z37.0 Single live birth
CPT/HCPCS: 82565; 83615; 84450; 84460; 84520; 84550; 85025; 86850; 86900; 86901

== ENCOUNTER → 2025-03-27 | Outpatient (CLI) | payer BC ==
[2025-03-27 19:06] LABS: HCT 40.2 % (37.2-46.3); HGB 13.6 g/dL (12.0-15.0); MCH 30.4 pg (27.0-32.0); MCHC 33.8 g/dL (32.0-37.0); MCV 89.7 FL (80.0-97.0); NRBC Per 100 WBC 0 X 10*3/uL (0.00-0.01); Platelet Count 300 X 10*3/uL (140-440); RBC 4.48 X 10*6/uL (4.10-5.20); RDW 12.4 % (11.5-14.5); WBC 8.16 X 10*3/uL (4.50-10.00)
[2025-03-28 02:19] LABS: T4, Free (Free Thyroxine) 1.95 ng/dL (0.80-1.80)
[2025-03-28 02:37] LABS: ALT 43 U/L (8-44); AST 34 U/L (13-35); Albumin 4.3 g/dL (3.8-4.9); Albumin/Globulin Ratio 1.65 Ratio (1.60-3.17); Alkaline Phosphatase 109 U/L (41-126); Anion Gap 11.80 mmol/L (4.00-12.00); BUN/Creat Ratio 28.60 Ratio (12.00-20.00); Blood Urea Nitrogen 14.3 mg/dL (9.0-27.0); Calcium 9.7 mg/dL (8.7-10.3); Carbon Dioxide 23.2 mmol/L (21.6-31.8); Chloride 104 mmol/L (96-109); Globulin 2.6 g/dL (1.6-3.3); Glucose 111 mg/dL (70-110); Potassium 4.3 mmol/L (3.5-5.5); Sodium 139 mmol/L (135-145); Total Protein 6.9 g/dL (6.2-8.2)
== END | disposition home or self-care (01) ==
LOC: LABWHC1 16:19
PROVIDERS: ATTEND Internal Medicine Endocrinology, Diabetes & Metabolism
DX: E05.00 Thyrotoxicosis with diffuse goiter without thyrotoxic crisis or storm (principal)
CPT/HCPCS: 36415; 80053; 84439; 84443; 84445; 84480; 85027